=== PATIENT | female | born 1975 | race Caucasian/White ===

== ENCOUNTER 2022-04-12 07:15 | Outpatient (RCR) | payer OTHER, SELFPAY | END 2022-07-03 11:58 | disposition home or self-care (01) | LOC: ANHDMC 07:15 | PROVIDERS: PCP Internal Medicine; Referring Provider Internal Medicine; Visit Provider Internal Medicine | DX: E10.65 Type 1 diabetes mellitus with hyperglycemia (principal); E10.40 Type 1 diabetes mellitus with diabetic neuropathy, unspecified | CPT/HCPCS: 99199 ==